=== PATIENT | male | born 1940 | race Caucasian/White ===

== ENCOUNTER 2018-07-08 11:38 | Observation (INO) | payer MEDICARE, SELFPAY ==
[2018-07-08] VITALS (12 sets, daily range): BP systolic 122–138; BP diastolic 67–110; PULSE 58–148; RESP 16–20; TEMP 36.7–36.9; O2SAT 97–98; BMI 30.4; BMI 28.9
[2018-07-08] MEDS: 0.9% Normal Saline 1,000 ML 1000 ML IV (12:08)
[2018-07-08 12:12] LABS: Basophil# 0.02 X10^3/uL; Basophil% 0.3 % (0-1); Eosinophil# 0.16 X10^3/uL; Eosinophils% 2.7 % (0-5); Hematocrit 42.4 % (40-54); Lymphocyte % 23.3 % (19-41); Mean Corpuscular Hgb 31.5 pg (27.0-32.0); Mean Corpuscular Volume 95.3 fL (80-94); Mean Platelet Vol. 9.6 fl (6.2-12.0); Monocyte# 0.43 X10^3/uL; Monocyte% 7.1 % (0-10); Neutrophil # 4.01 X10^3/uL (2.7-7.7); Neutrophil % 66.6 % (47-70); Platelet Count 180 K/mm3 (150-450); RBC Distribution Width CV 13.5 % (11.6-14.6); RBC Distribution Width SD 46.7 fl (35.1-43.9); Red Blood Count 4.45 M/mm3 (4.6-6.2)
[2018-07-08 12:13] LABS: POSITIVE COUNT NO; POSITIVE DIFFERENTIAL NO; POSITIVE MORPHOLOGY NO
[2018-07-08 12:26] LABS: Anion Gap 8 (5-15); BUN 30 mg/dL (7-18); BUN/Creat Ratio 19.6 RATIO (10-20); Calcium,Total 8.9 mg/dL (8.5-10.1); Chloride 109 mmol/L (98-107); Creatinine, Serum 1.53 mg/dL (0.70-1.30); EST Glomerular Filtration Rate 47 mL/min (>60); Est Glom Filt Rate - Afr Amer 57 mL/min (>60); Estimated Creatinine Clearance 43.07 ml/min; Glucose 127 mg/dL (74-106); Potassium 3.9 mmol/L (3.5-5.1); Sodium Level 141 mmol/L (136-145)
--- NOTE | 2018-07-08 13:02 | ED.VISSUMM ---
- ER Visit Summary Date of Service: 07/08/18 Chief Complaint: Syncope [] History of Present Illness: The patient is a 77 M [presents to the emergency department complaint of a syncopal episode that occurred today while at work. 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 Patient states that he try to get into some shade and his friend stated that he stopped responding to them and EMS was called. On EMS arrival had a witnessed syncopal episode that was short-lived. Patient denies any chest pain or palpitations. Patient does have a history of hypertension. Patient thinks he has been told that he has had irregular heart rhythm in the past and possibly atrial fibrillation. Patient is not anticoagulated.] Physical Examination: [HEENT-PERRLA, EOMI. Cranial nerves II through XII grossly intact. TMs clear. Mucous membranes moist. No adenopathy. Cardiovascular-irregularly irregular and tachycardic with heart rate in the low 100s. No murmurs auscultated. Lungs-clear to auscultation, chest wall stable without crepitus or subcu emphysema Abdomen-normoactive bowel sounds, soft, nontender, no rebound or rigidity, no peritoneal signs. Extremities-intact ?4, normal range of motion, normal pulses, atraumatic] Test Results: [EKG obtained showed a's tachycardia was narrow complex and irregular which I suspect is consistent with A. fib/flutter. No EKGs available for comparison. CBC with differential showing a 6.0, hemoglobin 14, hematocrit 42, platelets 180. Chemistries unremarkable. BUN was 30 and creatinine 1.5. Troponin was less than 0.015. Orthostatic vital signs were negative for a drop in blood pressure however his heart rate did elevate into the 140s.] Emergency Department Course and Treatment: [Patient received a liter normal same fluid bolus and was ordered Cardizem 20 mg IV bolus.] Treatment Plan: [Admit] Disposition: [Admit] Impression: [Syncope Atrial fibrillation with rapid ventricular response] This note was generated with [employer] software. It may contain incorrect words, spelling, and punctuation that were not noted in review of the chart prior to signing ED Disposition - Plan for ED Patient: Chief Complaint: Syncope Referrals: Toro Marquez MD [Primary Care Provider] -
--- NOTE | 2018-07-08 13:07 | NURSING ---
DR RAMSEY FOR DR KELSEY
--- NOTE | 2018-07-08 13:13 | NURSING ---
108 SYNCOPE, AFIB RVR ROSANGELA/ROXY
[2018-07-08] MEDS: dilTIAZem 25 MG/5 ML Vial 20 MG IV BOLUS (13:17)
--- NOTE | 2018-07-08 14:34 | PCM.HP.STD ---
Problem List (1) Hypertension Status: Chronic (2) Atrial fibrillation and flutter Status: Acute (3) Syncope Status: Acute History of Present Illness Date of Admission: 07/08/18 Chief Complaint: Syncope The patient is a 77 year old M with a h/o HTN presents with syncope. He was in his usual health the last few days and he is very active but today he was working outside and started to not feel right. He states that he needed to drink some water and and then went to sit in the shade. That is when he vision became blurry and he stopped responding to his friends. EMS was called and he had had a witnessed syncopal episode. They placed him on the ground and he responded after a few minutes and was brought to the ER. He was not found to be orthostatic but his heart rate did increase. He did not have any chest pain with this episode and does not remember any palpitations or SOB. He has never had syncope before. He was given a dose of cardizem in the ER and some fluid. The troponin was normal. Past Medical History Past Medical History (Chronic Problems): Chronic Problems Hypertension (Chronic) Allergies No Known Allergies Allergy (Verified 07/08/18 11:39) Home Medications: Ambulatory Orders Medication Instructions Recorded Lisinopril [Zestril] 5 mg PO DAILY 07/08/18 Surgical History: tonsillectomy, - - back surgery Smoking Status: Never smoker Alcohol: None Drugs: None - *Family History Maternal History Items: Heart Disease, Hypertension Review of Systems Constitutional: Denies: Chills, Fever, Weight Change Eyes: Reports: Blurred vision HEENT: Denies: Head Aches, Sinus Congestion, Sinus Drainage Cardiovascular: Reports: Syncope. Denies: Chest Pain, Palpitations Respiratory: Denies: Cough, Shortness of breath at rest, Sputum production Gastrointestinal: Denies: Abdominal Pain, Nausea, Vomiting Genitourinary: Denies: Dysuria Musculoskeletal: Denies: Joint Pain, Joint Tenderness Skin: Denies: Rash, Wounds Neurological: Denies: Numbness, Tingling, Focal weakness Psychiatric: Denies: Anxiety, Depression, Homicidal Ideations, Suicidal Ideations Hematologic/ Lymphatic: Denies: Easy Bruising, Easy Bleeding VTE Information - Inpt Only VTE Present on Admission: No Patient Problems: Active and Suspected Problems Atrial fibrillation and flutter (Acute) Syncope (Acute) - Physical Exam General: Alert, Oriented x3, Cooperative, No apparent distress HEENT: Atraumatic, EOMI, Normocephalic Oral: Moist Mucosa Neck: Supple, No JVD Lungs: Clear to auscultation, Normal air movement, No rhonchi, No wheeze, No rales Cardiovascular: Regular rate, Normal S1, Normal S2, No murmurs, - - irregular rhythm Abdomen: Soft, Non Tender, Non-Distended, No Hepato-splenomegaly Extremities: No edema, Capillary Refill Less than 3 Seconds Skin: No rashes, No breakdown Neurological: Neuro grossly intact, Motor Exam 5/5 strength throughout, Sensory exam intact to light touch and pain Psych/Mental Status: Normal Affect, Appropriate Vital Signs Temp Pulse Resp BP Pulse Ox 98.3 F 68 16 124/87 H 98 07/08/18 14:00 07/08/18 14:00 07/08/18 14:00 07/08/18 14:00 07/08/18 14:00 Oxygen Delivery Method Room Air Weight: 201 lb 8.04 oz Body Mass Index (BMI) 28.9 Assessment/Plan All Active Problems Atrial fibrillation and flutter (Acute) Syncope (Acute) 1. Syncope/HTN/New onset a-fib/flutter - Syncope is related to his afib - EKG is not entirely convincing for afib as he does have some P waves on some beats and what looks like flutter with other beats and no P wave with other beats - His heart rate is normal now but will start on metoprolol 25 mg BID and monitor - Obtain orthostatics - Heparin for DVT - His CHADSVASC is a 3 so he would qualify for anticoagulation however I am unsure if he truly has afib/flutter - Will repeat EKG in am and will discuss with cardiology - Will hold his lisinopril for now - Obtain magnesium, TSH and an echo for further evaluation 2. ROSE likely prerenal - State he had a health maintenance exam this month and was normal - Cr is about 1.5 - Will start some IVF and monitor creatinine DVT: Heparin Diet: Cardiac Code Visit Inpatient E&M: 71795 Init Hosp L3
[2018-07-08 14:54] LABS: Magnesium 2.1 mg/dL (1.6-2.6)
[2018-07-08] MEDS: 0.9% NaCl Peripheral Flush Adult/Peds IV (15:02)
[2018-07-08] MEDS: 0.9% Normal Saline 1,000 ML 100 ML IV (15:02)
[2018-07-08 15:10] LABS: Thyroid Stim Hormone (TSH) 2.29 uIU/mL (0.358-3.74)
--- NOTE | 2018-07-08 18:04 | PCM.CONS.C ---
Problem List (1) Atrial fibrillation and flutter Status: Acute (2) Syncope Status: Acute (3) Hypertension Status: Chronic Reason for Consult Date of Consultation: 07/08/18 History of Present Illness: The patient is a 77 year old white male with a past medical history of hypertension who is being referred for concerns of atrial fibrillation and syncope. He states the best of his knowledge, other than his hypertension, he has been healthy. He has remained very active working until approximately 2-3 years ago. 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 He states usually he feels well. Today he was out doing volunteer work and noted that, as the morning went on, he felt as if he needed to drink water. He states he did so and then a few moments later felt the same knee. At that time he apparently noted everything appeared to be somewhat blurry . He states his friends had him sit down in the shade. He then apparently was transiently unresponsive. He is unsure as to whether he truly lost consciousness or not. He does remember his friends being there with him and the EMS being summoned. He does not recall any obvious sensation of palpitations or rapid heart rates. He does not recall any chest discomfort or difficulty breathing. He was subsequently brought to the emergency department for further evaluation. They are from a cardiac standpoint he was noted to have an abnormal ECG which appear to demonstrate underlying atrial fibrillation-course as well as potentially atrial flutter. He had no acute ECG changes. He also demonstrated an occasional PVC. He did have a troponin I level performed which was negative. He had a chest x-ray performed which demonstrated no acute cardiopulmonary disease process per the radiology report. He was subsequently treated with IV diltiazem bolus. He was noted to have slowing of his rate and eventually conversion to sinus rhythm. He states the present time he feels back to his normal self. He denies any past cardiovascular history other than his hypertension. He has had no symptoms of orthopnea or PND or peripheral pitting edema. There has been no previous unresponsive and/or syncopal events. He does not recall undergoing any type of cardiovascular evaluation in the past. He does state in the past, several years ago, after prolonged back surgery, he was in the hospital and was reported as having a fast heart rate . He does not recall if it was given a specific name. He states it terminated spontaneously. He does not recall if there was any other evaluation at that time. [] Past Medical History Allergies/Adverse Reactions: Allergies No Known Allergies Allergy (Verified 07/08/18 11:39) Home Medications: Ambulatory Orders Medication Instructions Recorded Lisinopril [Zestril] 5 mg PO DAILY 07/08/18 Past Medical History (Chronic Problems): Chronic Problems Hypertension (Chronic) Surgical History: tonsillectomy, - - back surgery - *Family History Maternal History Items: Heart Disease, Hypertension Lives: Spouse/ Significant Other Smoking Status: Never smoker Alcohol: None Drugs: None Review of Systems - Review of Systems General: Denies: Fever, Night Sweats, Fatigue Cardiovascular: Reports: Near Syncope, Syncope. Denies: Chest Discomfort, Shortness of Breath, Orthopnea, PND, Peripheral Edema, Palpitations, Lightheadedness, Dizziness Respiratory: Denies: Cough, Sputum Production, Hemoptysis Gastrointestinal: Denies: Hematemesis, Hematochezia, Melena Genitourinary: Denies: Dysuria, Hematuria Skin: Denies: Rash Subjectve: This is an awake alert healthy appearing 77-year-old white male who appears to be resting comfortably at the moment in no acute distress. Objective: Vital Signs Temp Pulse Resp BP Pulse Ox 98.3 F 70 16 124/87 H 98 07/08/18 14:00 07/08/18 15:00 07/08/18 14:00 07/08/18 14:00 07/08/18 17:25 Oxygen Delivery Method Room Air Weight: 201 lb 8.04 oz Body Mass Index (BMI) 28.9 General: Awake, Alert, Oriented x 3, Cooperative, No Acute Distress HEENT: Atraumatic, Normocephalic, PERRL, EOMI, Sclera Non Icteric Oral: Moist Mucosa Neck: Supple, Good ROM, No JVD Lungs: Clear to auscultation Cardiovascular: Regular Rhythm, Premature Ectopic Beats, Normal S1, Normal S2 Vascular: No Carotid Bruits Abdomen: Bowel Sounds Present, Soft, Non Tender Extremities: No Cyanosis, No Clubbing, No edema Neurological: No Focal Motor or Sensory Deficit Psych/Mental Status: Appropriate, Normal Affect Rhythm: As noted above EKG: As noted above ECHO: 07/08/2018: Left ventricle thought to be normal with an LVEF of 60%; mild right atrial enlargement; trivial MR; mild TR; trivial AI; moderate PI; estimated RV systolic pressure of 37 mmHg; diastolic dysfunction CXR: As noted above Assessment/Plan 1. Atrial fibrillation/flutter At the present time the etiology is unclear. There is concern about the patient potentially becoming dehydrated leading to such an event based upon his clinical scenario and subsequent laboratory findings demonstrating an increased creatinine level, etc. However the same time he does have other potential contributing factors such as his age and hypertension. He is not known to have other medical issues that may be contributing at this time. He will continue to be monitored. This includes cardiac enzymes and ECGs. He is already had chest x-ray and a transthoracic echocardiogram. It would not be unreasonable to further evaluate him for any obvious evidence of underlying CAD, based upon his family risk factors, with an exercise tolerance test/imaging study. Noting his back related issues this may come in the form of a pharmacologic stress test. Depending upon the findings he may or may not need further diagnostic cardiovascular studies. In the interim he is being treated with rate control therapy and anticoagulant therapy. He may need further medical management going forward depending upon his findings and his clinical scenario, etc. 2. Near syncope/syncope It is unclear as to whether or not he truly lost consciousness today. Again this may be related to a combination of his environmental exposure, decrease intravascular volume, dehydration, etc. as well as his contributing atrial dysrhythmia. He is being further evaluated by monitoring his rate and rhythm. His laboratory studies are being followed. He will continue cardiac evaluation as noted above. In the interim based on concerns of decreased intravascular volume contributing to such event he is receiving IV fluids. 3. Hypertension He does have a history of hypertension. He will continue medical management as deemed appropriate. Comment: The above was discussed and reviewed with the patient. He was agreeable to this approach. This note was generated with [employer] dictation software. It may contain incorrect words, spelling, and punctuation that were not noted in checking the note before signing.
[2018-07-08] MEDS: Heparin Injection (Vial) 5,000 UNIT/ML VIAL 5000 UNIT SC (21:24)
[2018-07-08] MEDS: Metoprolol Tartrate 25 MG Tablet PO (21:24)
[2018-07-09] VITALS (11 sets, daily range): BP systolic 115–152; BP diastolic 61–78; PULSE 51–65; RESP 16; TEMP 36.3–36.7; O2SAT 96–98
[2018-07-09] MEDS: 0.9% Normal Saline 1,000 ML 100 ML IV (00:23)
[2018-07-09 05:54] LABS: Absolute Lymphocyte Count 1.47 X10^3/ul (0.83-4.51); Absolute Neutrophil Count 2.9 X10^3/uL (2.0-7.7); Basophil# 0.01 X10^3/uL; Basophil% 0.2 % (0-1); Eosinophil# 0.15 X10^3/uL; Eosinophils% 3.1 % (0-5); Hematocrit 38.8 % (40-54); Hemoglobin 12.7 g/dl (13.0-16.5); Lymphocyte # 1.47 X10^3/ul (4.0); Mean Corp Hgb Conc 32.7 g/gl (32-36); Mean Corpuscular Hgb 31.3 pg (27.0-32.0); Mean Corpuscular Volume 95.6 fL (80-94); Mean Platelet Vol. 9.4 fl (6.2-12.0); Monocyte# 0.37 X10^3/uL; Monocyte% 7.6 % (0-10); Neutrophil % 59.1 % (47-70); Platelet Count 155 K/mm3 (150-450); RBC Distribution Width CV 13.6 % (11.6-14.6); RBC Distribution Width SD 47.2 fl (35.1-43.9); Red Blood Count 4.06 M/mm3 (4.6-6.2); White Blood Count 4.9 K/mm3 (4.4-11.0)
[2018-07-09 05:55] LABS: POSITIVE COUNT NO; POSITIVE DIFFERENTIAL NO; POSITIVE MORPHOLOGY NO
[2018-07-09 06:00] LABS: Partial Thromboplast Time 31.9 Seconds (24.1-36.2); Prothrombin Time (Protime)PT. 13.4 SECONDS (11.7-14.9)
[2018-07-09 06:13] LABS: AST(SGOT) 19 U/L (15-37); Alanine Aminotransfer ALT/SGPT 17 U/L (16-61); Albumin, Serum 3.3 g/dL (3.2-5.0); Alkaline Phosphatase 97 U/L (45-117); Anion Gap 11 (5-15); BUN 24 mg/dL (7-18); BUN/Creat Ratio 20.9 RATIO (10-20); Bilirubin, Direct 0.13 mg/dL (0.00-0.30); Calcium,Total 8.1 mg/dL (8.5-10.1); Chloride 110 mmol/L (98-107); Cholesterol 152 mg/dL (200); Creatinine, Serum 1.15 mg/dL (0.70-1.30); EST Glomerular Filtration Rate 66 mL/min (>60); Est Glom Filt Rate - Afr Amer 80 mL/min (>60); Estimated Creatinine Clearance 57.31 ml/min; Globulin 3.3 g/dL (2.2-4.2); Glucose 81 mg/dL (74-106); High Density Lipoprotein 36 mg/dL; Magnesium 1.9 mg/dL (1.6-2.6); Potassium 4.1 mmol/L (3.5-5.1); Protein, Total 6.6 g/dL (6.4-8.2); Sodium Level 145 mmol/L (136-145); Triglycerides 80 mg/dL; Very Low Density Lipoprotein 16 mg/dL (5-40)
[2018-07-09 07:19] LABS: Hemoglobin A1c 5.2 % (4.2-6.3)
--- NOTE | 2018-07-09 09:10 | CASEMGMT ---
Addendum entered by Donna Shi 07/09/18 09:21: Patient sees an orthopedic surgeoin named Dr Bunny Nails for his back. He is with [facility] in [place]. Donna FAULKNER Original Note: SW met with patient, introduced self and role at [facility]. Patient lives alone in a 1 story condo. He sometimes uses a cane as he does have back problems. He does not have prescription coverage. BRIGETTE told him CM/SW will follow for any d/c needs. Donna FAULKNER
--- NOTE | 2018-07-09 10:22 | PCM.PN.CARD ---
Subjectve: The patient is awake and alert. He denies any obvious ongoing issues with respect to chest discomfort, difficulty breathing, or palpitations. Objective: Vital Signs Temp Pulse Resp BP Pulse Ox 98 F 59 L 16 118/61 96 07/09/18 06:17 07/09/18 07:33 07/09/18 06:17 07/09/18 06:19 07/09/18 07:17 Oxygen Delivery Method Room Air Weight: 201 lb 8.04 oz Body Mass Index (BMI) 28.9 Orthostatic Vital Signs Start: 07/09/18 01:48 Freq: q24h Status: Active Protocol: Activity Type Activity Date Activity User E-Sign Co-Sign Detail Recorded Client Recorded Date Recorded By Document 07/09/18 06:19 KG [id number] 07/09/18 06:23 KG 07/09/18 06:19 Orthostatic Vitals Standing -Blood Pressure (90/60-120/80) 152/78 H -Extremity Use Left Arm -Pulse Rate (60-100) 63 Sitting -Blood Pressure (90/60-120/80) 125/66 H -Extremity Use Left Arm -Pulse Rate (60-100) 57 L Lying -Blood Pressure (90/60-120/80) 118/61 -Extremity Use Left Arm -Pulse Rate (60-100) 55 L Intake and Output for Last 24 Hours 07/07/18 07/08/18 07/09/18 23:59 23:59 23:59 Intake Total 243 / 243 1537 / 1537 Balance 243 / 243 1537 / 1537 General: Awake, Alert, Oriented x 3, Cooperative, No Acute Distress HEENT: Atraumatic, Normocephalic, PERRL, EOMI, Sclera Non Icteric Oral: Moist Mucosa Neck: Supple, Good ROM, No JVD Lungs: Clear to auscultation Cardiovascular: Regular Rhythm, Premature Ectopic Beats, Normal S1, Normal S2 Vascular: No Carotid Bruits Abdomen: Bowel Sounds Present, Soft, Non Tender Extremities: No Cyanosis, No Clubbing, No edema Neurological: No Focal Motor or Sensory Deficit Psych/Mental Status: Appropriate, Normal Affect 07/09/18 03:18: Troponin I < 0.015 07/09/18 05:40: Sodium 145, Potassium 4.1, Chloride 110 H, Carbon Dioxide 24.0, Anion Gap 11, BUN 24 H, Creatinine 1.15, Est GFR (MDRD) Af Amer 80, Est GFR (MDRD) Non-Af 66, BUN/Creatinine Ratio 20.9 H, Glucose 81, Calcium 8.1 L, Magnesium 1.9, Total Bilirubin 0.40, Direct Bilirubin 0.13, Triglycerides 80, Cholesterol 152, LDL Cholesterol 100, VLDL Cholesterol 16, HDL Cholesterol 36 L 07/09/18 05:40: WBC 4.9, RBC 4.06 L, Hgb 12.7 L, Hct 38.8 L, MCV 95.6 H, MCH 31.3, MCHC 32.7, RDW 13.6, RDW Differential 47.2 H, Plt Count 155, MPV 9.4, Immature Gran % (Auto) 0.000, Neut % (Auto) 59.1, Lymph % (Auto) 30.0, [place] % (Auto) 7.6, Eos % (Auto) 3.1, Baso % (Auto) 0.2, Absolute Neuts (auto) 2.9, Total Counted Not Reportable 07/09/18 05:40: PT 13.4, INR 1.0, APTT 31.9 07/09/18 05:40: Hemoglobin A1c 5.2 07/09/18 05:40: Troponin I < 0.015 07/09/18 08:43: Troponin I < 0.015 Rhythm: Sinus rhythm; PVCs ECHO: Please see official report Stress Test: Pending Medical Necessity - Tobacco Use Smoking Status: Never smoker Assessment/Plan 1. Atrial fibrillation/flutter At the present time the etiology is unclear. There is concern about the patient potentially becoming dehydrated leading to such an event based upon his clinical scenario and subsequent laboratory findings demonstrating an increased creatinine level, etc. However the same time he does have other potential contributing factors such as his age and hypertension. He is not known to have other medical issues that may be contributing at this time. He will continue to be monitored. His cardiac enzymes are negative. His ECG demonstrated no acute changes. He is pending further evaluation with a pharmacologic stress nuclear imaging study. In the interim he is being treated with rate control therapy and anticoagulant therapy. He does have a [id number] score of approximately 3 based upon that he should be considered for anticoagulant therapy. 2. Near syncope/syncope It is unclear as to whether or not he truly lost consciousness today. Again this may be related to a combination of his environmental exposure, decrease intravascular volume, dehydration, etc. as well as his contributing atrial dysrhythmia. He is being further evaluated by monitoring his rate and rhythm. His laboratory studies are being followed. That is post IV fluids his creatinine level has improved. He will continue cardiac evaluation as noted above. 3. Hypertension He does have a history of hypertension. He will continue medical management as deemed appropriate. Comment: The above was discussed and reviewed with the patient. This note was generated with [employer] dictation software. It may contain incorrect words, spelling, and punctuation that were not noted in checking the note before signing.
--- NOTE | 2018-07-09 10:31 | PN.CARD_ITS ---
Subjectve: The patient is awake and alert. He denies any obvious ongoing issues with respect to chest discomfort, difficulty breathing, or palpitations. Objective: Vital Signs Temp Pulse Resp BP Pulse Ox 98 F 59 L 16 118/61 96 07/09/18 06:17 07/09/18 07:33 07/09/18 06:17 07/09/18 06:19 07/09/18 07:17 Oxygen Delivery Method Room Air Weight: 201 lb 8.04 oz Body Mass Index (BMI) 28.9 Orthostatic Vital Signs Start: 07/09/18 01:48 Freq: q24h Status: Active Protocol: Activity Type Activity Date Activity User E-Sign Co-Sign Detail Recorded Client Recorded Date Recorded By Document 07/09/18 06:19 KG [id number] 07/09/18 06:23 KG 07/09/18 06:19 Orthostatic Vitals Standing -Blood Pressure (90/60-120/80) 152/78 H -Extremity Use Left Arm -Pulse Rate (60-100) 63 Sitting -Blood Pressure (90/60-120/80) 125/66 H -Extremity Use Left Arm -Pulse Rate (60-100) 57 L Lying -Blood Pressure (90/60-120/80) 118/61 -Extremity Use Left Arm -Pulse Rate (60-100) 55 L Intake and Output for Last 24 Hours 07/07/18 07/08/18 07/09/18 23:59 23:59 23:59 Intake Total 243 / 243 1537 / 1537 Balance 243 / 243 1537 / 1537 General: Awake, Alert, Oriented x 3, Cooperative, No Acute Distress HEENT: Atraumatic, Normocephalic, PERRL, EOMI, Sclera Non Icteric Oral: Moist Mucosa Neck: Supple, Good ROM, No JVD Lungs: Clear to auscultation Cardiovascular: Regular Rhythm, Premature Ectopic Beats, Normal S1, Normal S2 Vascular: No Carotid Bruits Abdomen: Bowel Sounds Present, Soft, Non Tender Extremities: No Cyanosis, No Clubbing, No edema Neurological: No Focal Motor or Sensory Deficit Psych/Mental Status: Appropriate, Normal Affect 07/09/18 03:18: Troponin I < 0.015 07/09/18 05:40: Sodium 145, Potassium 4.1, Chloride 110 H, Carbon Dioxide 24.0, Anion Gap 11, BUN 24 H, Creatinine 1.15, Est GFR (MDRD) Af Amer 80, Est GFR ( MDRD) Non-Af 66, BUN/Creatinine Ratio 20.9 H, Glucose 81, Calcium 8.1 L, Magnesium 1.9, Total Bilirubin 0.40, Direct Bilirubin 0.13, Triglycerides 80, Cholesterol 152, LDL Cholesterol 100, VLDL Cholesterol 16, HDL Cholesterol 36 L 07/09/18 05:40: WBC 4.9, RBC 4.06 L, Hgb 12.7 L, Hct 38.8 L, MCV 95.6 H, MCH 31.3, MCHC 32.7, RDW 13.6, RDW Differential 47.2 H, Plt Count 155, MPV 9.4, Immature Gran % (Auto) 0.000, Neut % (Auto) 59.1, Lymph % (Auto) 30.0, [place] % ( Auto) 7.6, Eos % (Auto) 3.1, Baso % (Auto) 0.2, Absolute Neuts (auto) 2.9, Total Counted Not Reportable 07/09/18 05:40: PT 13.4, INR 1.0, APTT 31.9 07/09/18 05:40: Hemoglobin A1c 5.2 07/09/18 05:40: Troponin I < 0.015 07/09/18 08:43: Troponin I < 0.015 Rhythm: Sinus rhythm; PVCs ECHO: Please see official report Stress Test: Pending Medical Necessity - Tobacco Use Smoking Status: Never smoker Assessment/Plan 1. Atrial fibrillation/flutter At the present time the etiology is unclear. There is concern about the patient potentially becoming dehydrated leading to such an event based upon his clinical scenario and subsequent laboratory findings demonstrating an increased creatinine level, etc. However the same time he does have other potential contributing factors such as his age and hypertension. He is not known to have other medical issues that may be contributing at this time. He will continue to be monitored. His cardiac enzymes are negative. His ECG demonstrated no acute changes. He is pending further evaluation with a pharmacologic stress nuclear imaging study. In the interim he is being treated with rate control therapy and anticoagulant therapy. He does have a [id number] score of approximately 3 based upon that he should be considered for anticoagulant therapy. 2. Near syncope/syncope It is unclear as to whether or not he truly lost consciousness today. Again this may be related to a combination of his environmental exposure, decrease intravascular volume, dehydration, etc. as well as his contributing atrial dysrhythmia. He is being further evaluated by monitoring his rate and rhythm. His laboratory studies are being followed. That is post IV fluids his creatinine level has improved. He will continue cardiac evaluation as noted above. 3. Hypertension He does have a history of hypertension. He will continue medical management as deemed appropriate. Comment: The above was discussed and reviewed with the patient. This note was generated with [employer] dictation software. It may contain incorrect words, spelling, and punctuation that were not noted in checking the note before signing.
[2018-07-09] MEDS: Metoprolol Tartrate 25 MG Tablet PO (11:49)
--- NOTE | 2018-07-09 13:04 | STRESSREP ---
Stress Test Report Pharmacologic myocardial perfusion stress test. 77-year-old man with a history of chest pain. Stress protocol: Resting EKG demonstrates sinus bradycardia with a rate of 57 bpm normal intervals and noted resting blood pressure 164/86 meters of mercury. 0.4 mg regadenoson was infused per usual protocol followed by rapid intravenous saline flush injection continuous youth nutritional monitor was performed. The maximum heart rate attained was 96 bpm which was 66% maximum predicted heart rate the maximum workload was 1 metabolic equivalent. The patient maintained sinus rhythm throughout the recording. At rest there were no ST or T-wave changes noted suggest abnormal flow reserve at peak infusion no ST or T-wave changes were noted suggest abnormal flow reserve. Myocardial perfusion protocol. 11.3 mCi of technetium 99m sestamibi was injected at rest. 0.4 mg of regadenoson was infused per usual protocol peak infusion 33.9 mCi of technetium 99m sestamibi was injected stress images were obtained stress and rest images were reconstructed and compared in the short axis vertical long and horizontal long axis. Gated images were also obtained Perfusion SPECT analysis: Review of the stress images demonstrate normal uptake of tracer noted in all areas of the myocardium. The resting images similarly demonstrate normal uptake of tracer noted in all areas of the myocardium. No areas of reversibility are noted suggest ischemia and no previous infarct is noted. Gated SPECT analysis: The gated ejection fraction is noted to be 70%. Conclusion: Normal pharmacologic myocardial perfusion stress test. Preserved ejection fraction.
--- NOTE | 2018-07-09 14:09 | CASEMGMT ---
Addendum entered by Sully Orozco 07/09/18 14:10: This [facility] to follow for RX assist/coupon card. Vijay CORBETT CM Original Note: Call to pt's [facility] and they state also that pt does not have Rx coverage and they just normally use discount cards for him. Per Nikole CORBETT, pt to be sent home on [facility]. Vijay CORBETT CM
--- NOTE | 2018-07-09 15:30 | CASEMGMT ---
Pt provided with [employer] 30 day co-pay card and prescription hope application at this time with instruction, voices understanding. Pt advised to f/u with cardiology within next 2-3 weeks for f/u on anti-coagulation, voices understanding. Pt voices no further questions/concerns/needs at this time. Vijay CORBETT CM
--- NOTE | 2018-07-09 16:11 | PCM.DC ---
- Discharge Diagnoses Current Active Problems: Current Active and Chronic Problems Hypertension (Chronic) Atrial fibrillation and flutter (Acute) Syncope (Acute) You will use the following diet at home:: No restrictions, Regular Discharge Activity: Return to Normal Activity Instructions: What Is Atrial Flutter/Atrial Fibrillation?, Controlling High Blood Pressure, Understanding Dizziness, Balance Problems, and Fainting Allergies/Adverse Reactions: Allergies No Known Allergies Allergy (Verified 07/08/18 11:39) Medications to take at Discharge Lisinopril [Zestril] 5 mg PO DAILY 07/08/18 Apixaban [Eliquis] 5 mg PO BID 30 Days tab 07/09/18 Metoprolol Tartrate [Lopressor (beta cooper)] 25 mg PO BID 30 Days tab 07/09/18 The following prescriptions were given: Apixaban [Eliquis] 5 mg PO BID 30 Days tab Metoprolol Tartrate [Lopressor (beta cooper)] 25 mg PO BID 30 Days tab Primary Care Physician: Toro Marquez MD [Primary Care Provider] - Please follow up with your Primary Care Physician in: 1-2 weeks Test Results: Test results from this visit will be discussed in further detail at your follow-up appointment, if applicable. Please Follow Up With: Michael Chavez MD When: office will call to schedule Proposed Discharge Date: 07/09/18
--- NOTE | 2018-07-09 16:13 | PCM.DC.SUM ---
Discharge Date and Diagnosis - Problem List Patient Problems: Active and Suspected Problems Atrial fibrillation and flutter (Acute) Syncope (Acute) Date of Admission: 07/08/18 Date of Discharge: 07/09/18 - Primary Discharge Diagnosis Active and Suspected Problems Atrial fibrillation and flutter (Acute) Syncope (Acute) - Secondary Discharge Diagnosis Chronic Problems Hypertension (Chronic) Hospital Course and Treatment Imaging Results: stress test was normal Operations: None Procedures: 2-D Echocardiogram, Stress test Summary of Care Provided: The patient is a 77 year old M presented with syncope and was fount to have atrial fibrillation and atrial flutter with RVR Patient was rate controlled and started on Eliquis for anticoagulation. Rate control with metoprolol Was seen by cardiology as well Underwent stress test and echo both of which were completely normal[] Will f/u with cardiology as outpatient Discharge Diet: No Restrictions Discharge Activity: Return to Normal Activity Home Medications: Medications to take at Discharge Lisinopril [Zestril] 5 mg PO DAILY 07/08/18 Apixaban [Eliquis] 5 mg PO BID 30 Days tab 07/09/18 Metoprolol Tartrate [Lopressor (beta cooper)] 25 mg PO BID 30 Days tab 07/09/18 Following Prescrptions Were Given to Patient: Apixaban [Eliquis] 5 mg PO BID 30 Days tab Metoprolol Tartrate [Lopressor (beta cooper)] 25 mg PO BID 30 Days tab Primary Care Physician: Toro Marquez MD [Primary Care Provider] - Please follow up with your Primary Care Physician in: 1-2 weeks Please Follow Up With: Michael Chavez MD When: office will call to schedule Patient Instructions: Controlling High Blood Pressure, What Is Atrial Flutter/Atrial Fibrillation?, Understanding Dizziness, Balance Problems, and Fainting Patient Condition:: Good Medical Necessity - Tobacco Use Smoking Status: Never smoker Meaningful Use Info Meaningful Use Diagnoses (Choose all that apply): None applicable
== END 2018-07-09 16:48 | disposition home or self-care (01) ==
LOC: ED 12:09 → PCU 13:25
PROVIDERS: Family Medicine; Internal Medicine Cardiovascular Disease; Admitting Provider Family Medicine; Emergency Provider Emergency Medicine; Family Provider Family Medicine; PCP Family Medicine; Visit Provider Internal Medicine
DX: I48.91 Unspecified atrial fibrillation (principal); R55 Syncope and collapse; I48.92 Unspecified atrial flutter; Z79.899 Other long term (current) drug therapy; I10 Essential (primary) hypertension; N17.9 Acute kidney failure, unspecified; I08.3 Combined rheumatic disorders of mitral, aortic and tricuspid valves; I49.3 Ventricular premature depolarization; R94.31 Abnormal electrocardiogram [ECG] [EKG]
CPT/HCPCS: 36415; 71045; 78452; 80048; 80061; 80076; 83036; 83735; 84443; 84484; 85025; 85610; 85730; 93005; 93017; 93306; 96361; 96372; 96374; 99218; 99285; A9500; J7030; A4216; G0378

== ENCOUNTER → 2019-06-30 06:11 | Outpatient (CLI) | payer MEDICARE, SELFPAY ==
[2019-06-19 10:21] VITALS: BMI 29.7
--- NOTE | 2019-06-30 11:03 | STRESSREP_ITS ---
Stress Test Report Date: 06-30-19 Procedure: Exercise tolerance test/imaging study Indications: Chest pain Consent: Per the patient Procedure: The patient exercised on a Naif protocol for 6 minutes completing Stage II achieving a peak heart rate of 148 bpm (102 % predicted maximal heart rate) with a peak blood pressure 184/78 mmHg and a peak MET capacity of 7 METs. The baseline ECG demonstrated normal sinus rhythm. The peak exercise ECG demonstrated somatic/motion artifact with no obvious ECG changes. There were occasional PVCs/ventricular couplets during exercise/recovery and occasional ventricular bigeminy during exercise. The functional capacity was considered average. There was no complaint of chest discomfort during exercise or recovery. The examination was discontinued secondary to dyspnea. Impression: 1. Technically adequate (percent predicted maximal heart rate greater than 85%) exercise tolerance test 2. Peak exercise ECG with somatic/motion artifact with no obvious ECG changes 3. There were occasional PVCs/ventricular couplets during exercise/recovery and occasional ventricular bigeminy during exercise 4. Nuclear images pending Myocardial perfusion imaging study: Technique: The patient was injected with 14.4 mCi of technetium 99m Cardiolite and subsequently rest SPECT Cardiolite nuclear imaging was obtained in the horizontal long, vertical long, and short axis views. The patient exercised on a Naif protocol for 6 minutes completing Stage II achieving a peak heart rate of 148 bpm (102 % predicted maximal heart rate) with a peak blood pressure 184/78 mmHg and a peak MET capacity of 7 METs. The patient was injected with 44.7 mCi of technetium 99m Cardiolite and subsequently stress SPECT Cardiolite nuclear imaging was obtained in the horizontal long, vertical long, and short axis views. A gated Cardiolite study at peak stress was obtained. Interpretation: Rest and stress SPECT Cardiolite nuclear imaging status post realignment, normalization, and attenuation correction, demonstrates the appearance of relative uniform tracer uptake and myocardial perfusion appearing within normal limits. There is end systolic thickening and brightening. The gated Cardiolite study demonstrates myocardial thickening and inward wall motion. The reported LVEF is 74 %. Impression: 1. Rest and stress SPECT Cardiolite nuclear imaging demonstrate relative uniform tracer uptake and myocardial perfusion appearing within normal limits. 2. The gated Cardiolite study reports an LVEF of 74 %. This note was generated with [email or web address] software. It may contain incorrect words, spelling, and punctuation that were not noted in checking the note before signing.
== END ==
PROVIDERS: Family Provider Family Medicine; PCP Family Medicine; Referring Provider Nurse Practitioner Family; Visit Provider Nurse Practitioner Family
DX: R07.9 Chest pain, unspecified (principal)
CPT/HCPCS: 78452; 93017; A9500; A4216